=== PATIENT | male | born 1990 | race Two or more races ===

== ENCOUNTER 2018-08-28 02:42 | Emergency (ER) | payer SELFPAY ==
[2018-08-28] MEDS ORDERED: LIDOCAINE 2% JELLY 5 ML TUBE TOP ONE (03:18)
[2018-08-28] MEDS ORDERED: KETOROLAC TROMETHAMINE 60 MG/2 ML SDV IM ONE (03:18)
[2018-08-28] MEDS ORDERED: ACETAMINOPHEN 325 MG TABLET PO ONE (03:18)
[2018-08-28] MEDS ORDERED: AMOXICILLIN TRIHYDRATE 500 MG CAPSULE PO ONE (03:18)
--- NOTE | 2018-08-28 03:23 | ER Document Report ---
ED General - General Chief Complaint: Ear Pain Stated Complaint: EAR PAIN Time Seen by Provider: 08/28/18 02:59 Notes: Patient is a 28-year-old male without chronic medical problems who presents with 24 hours of progressively worsening pain to the right ear as well as 3 days of sore throat. The patient describes the pain to his right ear as being the main reason that he came to the emergency department tonight. Describes a severe, throbbing, constant pain rating from his ear down into his jaw. States the pain is excruciating. Has not tried any to improve the pain. Nothing worsens his pain. No history of similar symptoms in the past. Has not had fever or constitutional symptoms at home. Does not have a primary care physician. The history and physical exam was obtained by the provider using Bulgarian. A formal hospital hot walker was offered to the patient and any family at the bedside at the beginning of the encounter and was declined. TRAVEL OUTSIDE OF THE [place] IN LAST 30 DAYS: No - Related Data Allergies/Adverse Reactions: No Known Allergies Allergy (Verified 09/19/13 21:44) Past Medical History - General Information source: Patient - Social History Smoking Status: Never Smoker Frequency of alcohol use: Occasional Drug Abuse: None Lives with: Family Family History: DM - Immunizations Immunizations up to date: Yes Hx Diphtheria, Pertussis, Tetanus Vaccination: Yes Review of Systems - Review of Systems Notes: Constitutional: Negative for fever. HENT: Positive for sore throat and right ear pain Eyes: Negative for visual changes. Cardiovascular: Negative for chest pain. Respiratory: Negative for shortness of breath. Gastrointestinal: Negative for abdominal pain, vomiting or diarrhea. Genitourinary: Negative for dysuria. Musculoskeletal: Negative for back pain. Skin: Negative for rash. Neurological: Negative for headaches, weakness or numbness. 10 point ROS negative except as marked above and in HPI. Physical Exam - Vital signs Vitals: Temp Pulse Resp BP Pulse Ox 98.1 F 90 18 170/100 H 99 08/28/18 02:52 08/28/18 02:52 08/28/18 02:52 08/28/18 02:52 08/28/18 02:52 Interpretation: Hypertensive Notes: PHYSICAL EXAMINATION: GENERAL: Appears uncomfortable but in no acute distress HEAD: Atraumatic, normocephalic. EYES: Pupils equal round and reactive to light, extraocular movements intact, sclera anicteric, conjunctiva are normal. ENT: nares patent, oropharynx clear without exudates. Moist mucous membranes. Left TM clear without any purulent effusion. The right TM is bulging very prominently with purulent effusion and associated erythema. NECK: Normal range of motion, right-sided submandibular and anterior cervical lymphadenopathy is present LUNGS: Breath sounds clear to auscultation bilaterally and equal. No wheezes rales or rhonchi. HEART: Regular rate and rhythm without murmurs ABDOMEN: Soft, nontender, normoactive bowel sounds. No guarding, no rebound. No masses appreciated. EXTREMITIES: Normal range of motion, no pitting or edema. No cyanosis. NEUROLOGICAL: No focal neurological deficits. Moves all extremities spon taneously and on command. PSYCH: Normal mood, normal affect. SKIN: Warm, Dry, normal turgor, no rashes or lesions noted. Course - Re-evaluation Re-evalutation: 08/28/18 03:19 Presentation is most consistent with an acute otitis media. Clinical history as well as exam is most consistent with this diagnosis. Based on history and examination do not suspect an acute meningitis, encephalitis, peritonsillar abscess, or retropharyngeal abscess. Patient is otherwise well in appearance, no acute distress. Vitals otherwise within normal limits. The patient will be started on amoxicillin twice a day for 10 days. At this time will discharge with return precautions and follow-up recommendations. Verbal discharge instructions given a the bedside to the parents and opportunity for questions given. Medication warnings reviewed. Patient is in agreement with this plan and has verbalized understanding of return precautions and the need for primary care follow-up in the next 24-72 hours. - Vital Signs Vital signs: Temp Pulse Resp BP Pulse Ox 98.1 F 90 18 170/100 H 99 08/28/18 02:52 08/28/18 02:52 08/28/18 02:52 08/28/18 02:52 08/28/18 02:52 Discharge - Discharge Clinical Impression: Sore throat Right otitis media Qualifiers: Otitis media type: suppurative Chronicity: acute Recurrence: non-recurrent Spontaneous tympanic membrane rupture: without spontaneous rupture Qualified Code(s): H66.001 - Acute suppurative otitis media without spontaneous rupture of ear drum, right ear Condition: Good Disposition: HOME, SELF-CARE Additional Instructions: You were seen today for ear pain and have an acute ear infection. Please take the antibiotic that has been prescribed until it is completed even if you are feeling better before you have finished all the antibiotics. For your pain: Take ibuprofen 600 mg and acetaminophen 1000 mg every 6 hours together as needed for pain. Use lidocaine with which you have been sent home for pain not controlled by Tylenol and ibuprofen put together. Return if you have worsening of your pain, loss of hearing in the affected ear, worsening facial pain, headaches, pass out, or any other symptoms that are worrisome to you. Prescriptions: Amoxicillin 1 tab PO TID #30 tab Forms: Elevated Blood Pressure
[2018-08-28 04:17] VITALS: BP 152/88
== END 2018-08-28 04:17 | disposition home or self-care (01) ==
LOC: ER 02:42
DX: H66.001 Acute suppurative otitis media without spontaneous rupture of ear drum, right ear (principal); H92.01 Otalgia, right ear; J02.9 Acute pharyngitis, unspecified
CPT/HCPCS: 99282; 96372; J1885

== ENCOUNTER 2018-09-05 21:29 | Emergency (ER) | payer SELFPAY ==
[2018-09-05 21:36] VITALS: BP 151/91
[2018-09-06] MEDS ORDERED: IBUPROFEN 800 MG TABLET PO ONE (00:26)
[2018-09-06] MEDS ORDERED: DEXAMETHASONE SOD PHOS INJ 10 MG/1 ML VIAL IM ONE (00:27)
--- NOTE | 2018-09-06 01:12 | ER Document Report ---
HPI - HPI Patient complains to provider of: Sore throat Time Seen by Provider: 09/05/18 23:30 Pain Level: 5 Context: Patient is a 28-year-old male that comes to the emergency department for chief complaint of sore throat that started this morning. He states it is getting worse and now it is painful to swallow. He denies fever or chills. He denies shortness of breath, headache, abdominal pain. He states he was recently seen for a right ear infection and he is completing amoxicillin for this. He denies any daily medications or diagnosed medical problems. He denies any other complaints. Patient speaks [place]anian, [employer]Pad interpretation system was used. - EENT EENT: REPORTS: Sore Throat - REPRODUCTIVE Reproductive: DENIES: : Past Medical History - General Information source: Patient - Social History Smoking Status: Never Smoker Chew tobacco use (# tins/day): No Frequency of alcohol use: Occasional Drug Abuse: None Lives with: Family Family History: DM Patient has suicidal ideation: No Patient has homicidal ideation: No - Medical History Medical History: Negative Renal/ Medical History: Denies: Hx Peritoneal Dialysis Surgical Hx: Negative - Immunizations Immunizations up to date: Yes Hx Diphtheria, Pertussis, Tetanus Vaccination: Yes Vertical Provider Document - CONSTITUTIONAL General Appearance: WD/WN, No Apparent Distress - INFECTION CONTROL TRAVEL OUTSIDE OF THE [place] IN LAST 30 DAYS: No - HEENT HEENT: Atraumatic, Normocephalic. negative: Normal ENT Exam - There is erythema of the posterior pharynx with mild tonsillar hypertrophy, normal uvula, no evide nce of peritonsillar abscess, patent airway. Otherwise unremarkable oropharyngeal exam. Unremarkable tympanic membranes bilaterally. Normal mastoids. - NECK Neck: negative: Other - Mild bilateral anterior cervical adenopathy - RESPIRATORY Respiratory: Breath Sounds Normal, No Respiratory Distress - CARDIOVASCULAR Cardiovascular: Regular Rate, Regular Rhythm - GI/ABDOMEN Gastrointestinal: Abdomen Soft, Abdomen Non-Tender - NEURO Level of Consciousness: Awake, Alert, Appropriate - DERM Integumentary: Warm, Dry, No Rash Course - Re-evaluation Re-evalutation: Patient has mild tonsillitis on exam. Mild anterior cervical. No abdominal tenderness suggesting splenomegaly. Patient is completing amoxicillin already, strep test is negative. I suspect he has a viral tonsillitis. I discussed this in the different possibilities and expectations. Patient was provided with dexamethasone. Discussed follow-up and return precautions in detail. Patient states understanding and agreement. - Vital Signs Vital signs: Temp Pulse Resp BP Pulse Ox 98.8 F 89 16 151/91 H 98 09/05/18 21:35 09/05/18 21:35 09/05/18 21:35 09/05/18 21:35 09/05/18 21:35 Discharge - Discharge Clinical Impression: Sore throat, Lymphadenopathy Condition: Stable Disposition: HOME, SELF-CARE Additional Instructions: [place]orne prueba de estreptococo para la garganta es negativa. [place]orne problema es probablemente rosa infeccin viral. [place] debera irse con el tiempo. Usted nielsen sido tratado con Decadron para ayudar con ulises sntomas. [place] ibuprofeno para el dolor. Completa tu antibitico amoxicilina. Regrese si est peor (tiene problemas para respirar o tragar, la fiebre regresa, el odo empeora nuevamente o cualquier otro sntoma relacionado con los sntomas). Prescriptions: Ibuprofen [Motrin 600 mg Tablet] 600 mg PO Q6HP PRN #24 tablet PRN Reason: Forms: Return to Work
== END 2018-09-06 01:51 | disposition home or self-care (01) ==
LOC: ER 21:29
DX: J02.9 Acute pharyngitis, unspecified (principal); H66.91 Otitis media, unspecified, right ear; R59.0 Localized enlarged lymph nodes
CPT/HCPCS: 99283; 96372; 87070; 87880; J1100